=== PATIENT | female | born 1980 | race Caucasian/White ===

== ENCOUNTER 2017-04-12 09:17 | Inpatient (IN) | payer BC ==
[2017-04-12 10:28] VITALS: BMI 30.7
--- NOTE | 2017-04-12 14:11 | HP ---
CIWA Score - CIWA Score Nausea/Vomitin (N/VD) Muscle Tremors: 4-Moderate,w/Arms Extend Anxiety: 4-Mod. Anxious/Guarded Agitation: 3 Paroxysmal Sweats: 1-Minimal Palms Moist Orientation: 0-Oriented Tacttile Disturbances: 0-None Auditory Disturbances: 0-None Visual Disturbances: 1-Very Mild Sensitivity Headache: 1-Very Mild CIWA-Ar Total Score: 19 Admission ROS S - HPI Chief Complaint: DETOX TX FOR ALCOHOL DEPENDENCE Allergies/Adverse Reactions: Allergies Allergy/AdvReac Type Severity Reaction Status Date / Time Sulfa (Sulfonamide Allergy Severe Rash Verified 04/12/17 11:04 Antibiotics) History of Present Illness: 36 Y/O FEMALE WITH A HX ALCOHOL DEPENDENCE SEEKING DETOX TX. FIRST TIME HERE. Exam Limitations: No Limitations - Ebola screening Have you traveled outside of the country in the last 21 days: No Have you had contact with anyone from an Ebola affected area: No Have you been sick,other than usual withdrawal symptoms: No Do you have a fever: No - Review of Systems Constitutional: Chills, Loss of Appetite, Night Sweats, Changes in sleep, Other (WIEGHT GAIN) EENT: reports: Blurred Vision, Tearing, Nose Congestion, Dental Problems ( MISSING TEETH/CAVITIES.) Respiratory: reports: Shortness of Breath (ASTHMA), Wheezing Cardiac: reports: Chest Pain (WENT TO CARDIALOGISTS A MONTH AND A HALF AGO. NO CARDIAC INVOLVEMENT INDICATED BY PATIENT PER HER CARDIAC WORK UP. "MAYBE ANXIETY RELATED".), Lightheadedness, Palpitations, Chest Tightness (DUE TO PANIC ATTACKS) GI: reports: Diarrhea, Nausea, Poor Appetite, Poor Fluid Intake, Vomiting, Abdominal cramping : reports: No Symptoms Reported Musculoskeletal: reports: Back Pain, Joint Pain, Muscle Pain Integumentary: reports: Bruising (BRUISES EASILY.) Neuro: reports: Headache, Numbness, Tingling, Tremors, Unsteady Gait, Dizziness Endocrine: reports: No Symptoms Reported Hematology: reports: No Symptoms Reported Psychiatric: reports: Orientated x3, Anxious, Depressed Other Systems: Reviewed and Negative Patient History - Patient Medical History Hx Anemia: No Hx Asthma: Yes (MDI) Hx Chronic Obstructive Pulmonary Disease (COPD): No Hx Cardiac Disorders: No Hx Hypertension: No Hx Hypercholesterolemia: No HX Cerebrovascular Accident: No Hx Seizures: No Hx Diabetes: No Hx Gastrointestinal Disorders: Yes (acid reflux) Hx Genitourinary Disorders: No Hx Sexually Transmitted Disorders: Yes (chlamydia at age 14) Hx Renal Disease (ESRD): No Hx Thyroid Disease: No Hx Human Immunodeficiency Virus (HIV): No (NEGATIVE HX) Hx Hepatitis C: No Hx Depression: Yes (ON CELEXA,LAMICTAL,WELBUTRIN,GABAPENTIN) Hx Suicide Attempt: Yes (CUTTING AT 13;DENIES CURRENT S/H IDEATION) Hx Schizophrenia: No - Patient Surgical History Past Surgical History: Yes Hx Neurologic Surgery: No Hx Cataract Extraction: No Hx Cardiac Surgery: No Hx Lung Surgery: No Hx Breast Surgery: No Hx Breast Biopsy: No Hx Abdominal Surgery: No Hx Appendectomy: No Hx Cholecystectomy: No Hx Genitourinary Surgery: No Hx Section: No Hx Orthopedic Surgery: Yes (fx, right knee) Hx Hysterectomy: No Anesthesia Reaction: No - PPD History Previous Implant?: Yes Documented Results: Negative w/o proof Implanted On Prior R Admission?: No PPD to be Administered?: Yes - Reproductive History Patient is a Female of Child Bearing Age (11 -55 yrs old): Yes Last Menstrual Period: 04/10/17 Patient : No - Smoking Cessation Smoking history: Current every day smoker Have you smoked in the past 12 months: Yes Aproximately how many cigarettes per day: 30 Hx Chewing Tobacco Use: No Initiated information on smoking cessation: Yes 'Breaking Loose' booklet given: 04/12/17 - Substance & Tx. History Hx Alcohol Use: Yes (BEER/WHISKY/WINE) Hx Substance Use: No Substance Use Type: Alcohol Hx Substance Use Treatment: Yes (LAST TX AT [facility] LAST 24 HRS FOR DETOX) - Substances Abused Alcohol-beer/whisky/wine Route: Oral Frequency: Daily Amount used: 15-18 (12 oz.)/1 pt. Age of first use: 11 Date of Last Use: 04/11/17 Family Disease History - Family Disease History Family Disease History: Diabetes: Grandparent (GF-) Admission Physical Exam BHS - Vital Signs Vital Signs: Vital Signs - 24 hr 04/12/17 10:24 Temperature 97.3 F L Pulse Rate 84 Respiratory 18 Rate Blood Pressure 130/83 - Physical General Appearance: Yes: Moderate Distress, Obese, Irritable, Anxious HEENTM: Yes: EOMI, Normocephalic, AMBER, Pharynx Normal, Photophobia Respiratory: Yes: Chest Non-Tender, Lungs Clear, Normal Breath Sounds, No Respiratory Distress Neck: Yes: No masses,lesions,Nodules, Supple, Trachea in good position Breast: Yes: Breast Exam Deferred Cardiology: Yes: Regular Rhythm, Regular Rate, S1, S2 Abdominal: Yes: Normal Bowel Sounds, Non Tender, Soft Genitourinary: Yes: Other (N/C) Back: Yes: Within Normal Limits Musculoskeletal: Yes: full range of Motion, Gait Steady Extremities: Yes: Normal Range of Motion, Non-Tender, Tremors Neurological: Yes: winch stripper II-XII NML intact, Fully Oriented, Alert, Motor Strength 5/5 Integumentary: Yes: Dry, Warm Lymphatic: Yes: Within Normal Limits - Diagnostic (1) Alcohol dependence with uncomplicated withdrawal Current Visit: Yes Status: Acute (2) Asthma Current Visit: Yes Status: Chronic Qualifiers: Asthma severity: mild intermittent Asthma complication type: uncomplicated Qualified Code(s): J45.20 - Mild intermittent asthma, uncomplicated (3) GERD (gastroesophageal reflux disease) Current Visit: Yes Status: Chronic Qualifiers: Esophagitis presence: without esophagitis Qualified Code(s): K21.9 - Gastro-esophageal reflux disease without esophagitis Comment: NO CURRENT MED (4) Depression with anxiety Current Visit: Yes Status: Chronic Cleared for Admission S - Detox or Rehab [facility] Level of Care: Medically Managed Detox Regimen/Protocol: Librium [facility] Breath Alcohol Content Breath Alcohol Content: 0 Urine Pregancy Test - Result Urine Test Results: Negative- NO Line Present Urine Drug Screen - Results Drug Screen Negative: No Urine Drug Screen Results: BZO-Benzodiazepines
[2017-04-12] MEDS ORDERED: LOPERAMIDE HCL 2 MG CAPSULE PO PRN (14:34)
[2017-04-12] MEDS ORDERED: chlordiazePOXIDE HCL 25 MG CAPSULE PO PRN (14:34)
[2017-04-12] MEDS ORDERED: MENTHOL/PHENOL 1 EACH UD MM PRN (14:34)
[2017-04-12] MEDS ORDERED: hydrOXYzine PAMOATE 25 MG CAPSULE (FP) PO PRN (14:34)
[2017-04-12] MEDS ORDERED: MAGNESIUM CITRATE 300 ML BOTTLE PO PRN (14:34)
[2017-04-12] MEDS ORDERED: ACETAMINOPHEN 325 MG TABLET (FP) PO PRN (14:34)
[2017-04-12] MEDS ORDERED: P-EPHED 60MG/TRIPROLIDI 2.5MG TABLET PO PRN (14:34)
[2017-04-12] MEDS ORDERED: MAGNESIUM HYDROX 2400MG/30ML ORAL SUSPENSION 30 ML CUP PO PRN (14:34)
[2017-04-12] MEDS ORDERED: MAG HYDROX/AL HYDROX/SIMETH 30 ML UNIT-DOSE CUP PO PRN (14:34)
[2017-04-12] MEDS ORDERED: IBUPROFEN 400 MG TABLET (FP) PO PRN (14:34)
[2017-04-12] MEDS ORDERED: chlordiazePOXIDE HCL 25 MG CAPSULE PO ONE (15:15)
[2017-04-12] MEDS: chlordiazePOXIDE HCL 25 MG CAPSULE PO SCH ×2 (16:24→22:25)
[2017-04-12] MEDS: NICOTINE 21 MG/24 HOURS TOPICAL PATCH TD SCH (17:50)
[2017-04-12 18:22] LABS: URINE APPEARANCE SLCLOUDY; URINE BILIRUBIN NEGATIVE (NEGATIVE); URINE BLOOD 2+ (NEGATIVE); URINE COLOR AMBER; URINE GLUCOSE (UA) NEGATIVE (NEGATIVE); URINE KETONE TRACE (NEGATIVE); URINE LEUK ESTERASE NEGATIVE (NEGATIVE); URINE NITRITE NEGATIVE (NEGATIVE); URINE PROTEIN NEGATIVE (NEGATIVE); URINE UROBILINOGEN NEGATIVE mg/dL (0.2-1.0)
[2017-04-12 18:36] LABS: URINE MUCUS RARE; URINE RBC 17 /hpf (0-3); URINE WBC 2 /hpf (3-5)
[2017-04-12] MEDS: THIAMINE HCL 100 MG TABLET (FP) PO SCH (22:25)
[2017-04-12] MEDS: diphenhydrAMINE HCL 50 MG CAPSULE PO PRN (22:26)
[2017-04-12] MEDS: guaiFENesin/D-METHORPHAN HB 10 ML UNIT-DOSE CUPS PO PRN (22:26)
[2017-04-13] MEDS: chlordiazePOXIDE HCL 25 MG CAPSULE PO SCH ×4 (06:12→22:34)
[2017-04-13] MEDS: NICOTINE POLACRILEX 4 MG GUM BC PRN ×3 (06:15→18:11)
[2017-04-13 10:41] LABS: MCH 31.9 pg (25.7-33.7); MCHC 33.5 g/dl (32.0-36.0); MEAN CELL VOLUME 95.1 fl (80-96); MEAN PLT VOLUME 8.9 fl (7.5-11.1); PLATELET COUNT 271 K/MM3 (134-434); WHITE BLOOD COUNT 7.5 K/mm3 (4.0-10.0)
[2017-04-13 10:50] LABS: ANION GAP 9 (8-16); CALCIUM 9.1 mg/dL (8.5-10.1); CO2 26 mmol/L (21-32); GLUCOSE,RANDOM 105 mg/dL (74-106); SGOT/AST 33 U/L (15-37); SGPT/ALT 32 U/L (12-78)
[2017-04-13 10:52] LABS: ALK PHOS 92 U/L (45-117); BILIRUBIN,TOTAL 0.9 mg/dL (0.2-1.0); CREATININE 0.7 mg/dL (0.55-1.02); TOT PROT 7.3 g/dl (6.4-8.2)
[2017-04-13] MEDS: PRENATAL VITAMINS W/ FOLIC ACID TABLET (FP) PO SCH (10:58)
[2017-04-13] MEDS: NICOTINE 21 MG/24 HOURS TOPICAL PATCH TD SCH (11:01)
--- NOTE | 2017-04-13 11:27 | CONSULT ---
[facility] Psychiatric Consult - Data Date of interview: 04/13/17 Admission source: [facility] Identifying data: First admission to [facility] for this 36 y/o female seeking detox treatment on for alcohol dependence. Substance Abuse History: Discussed with the patient.Ms Velarde confirms this report. Smoking Cessation. Smoking history: Current every day smoker. Have you smoked in the past 12 months: Yes. Aproximately how many cigarettes per day : 30. Hx Chewing Tobacco Use: No. Initiated information on smoking cessation: Yes. 'Breaking Loose' booklet given: 04/12/17. - Substance & Tx. History. Hx Alcohol Use: Yes (BEER/WHISKY/WINE). Hx Substance Use: No. Substance Use Type : Alcohol. Hx Substance Use Treatment: Yes (LAST TX AT [facility] LAST 24 HRS FOR DETOX). - Substances Abused. Alcohol-beer/whisky/ wine. Route: Oral. Frequency: Daily. Amount used: 15-18 (12 oz.)/1 pt. Age of first use: 11. Date of Last Use: 04/11/17 Medical History: Bronchial asthma,GERD and a history of treatment for chlamydia.Noted additional report of orthosurgery for torn meniscus (left knee) and reconstructive surgery for fracture of right knee. Psychiatric History: Patient admits to a psychiatric hospitalization in [place] (age 13).Diagnosed with Bipolar Disorder and BASSEM.Ms Velarde indicates that she sees a private psychiatrist in [facility] for medication management.Maintained on gabapentin 600 mg/day + lamictal 200 mg/day + wellbutrin XL 300 mg/day + celexa 40 mg/day.Patient endorses a history of adequate adherence to her medications (confirmed by review of pharmacy claims of 02/06/17 + 02/26/17).Noted remote history of suicide attempt via wrist-cutting (age 13). Physical/Sexual Abuse/Trauma History: Patient denies. Additional Comment: Urine Drug Screen Results: BZO-Benzodiazepines.Noted. Mental Status Exam - Mental Status Exam Alert and Oriented to: Time, Place, Person Cognitive Function: Good Patient Appearance: Well Groomed (overweight) Mood: Anxious, Apprehensive, Hopeful Affect: Mood Congruent Patient Behavior: Fatigued, Appropriate, Cooperative Speech Pattern: Clear Voice Loudness: Normal Thought Process: Goal Oriented Thought Disorder: Not Present Hallucinations: Denies Suicidal Ideation: Denies Homicidal Ideation: Denies Insight/Judgement: Poor Sleep: Fair Appetite: Good Muscle strength/Tone: Normal Gait/Station: Normal Psychiatric Findings - Problem List ([place] 1, 2,3) (1) Alcohol dependence with uncomplicated withdrawal Status: Chronic (2) Alcohol-induced mood disorder Status: Chronic (3) BASSEM (generalized anxiety disorder) Status: Chronic (4) Bipolar disorder Status: Chronic (5) Asthma Status: Chronic Qualifiers: Asthma severity: mild intermittent Asthma complication type: uncomplicated Qualified Code(s): J45.20 - Mild intermittent asthma, uncomplicated (6) GERD (gastroesophageal reflux disease) Status: Chronic Qualifiers: Esophagitis presence: without esophagitis Qualified Code(s): K21.9 - Gastro-esophageal reflux disease without esophagitis Comment: NO CURRENT MED - Initial Treatment Plan Initial Treatment Plan: Psychoeducation.Medications are verified via survey of recent pharmacy claims.Bottles seen.NO scripts needed at discharge (noted refills for 90 days already available from OPD provider).Medications : gabapentin 200 mg po tid + celexa 40 mg po daily + lamictal 200 mg po daily + wellbutrin XL 300 mg po daily.Side effects/benefits of each drug are discussed with patient,including the risk of exfoliative dermatitis,seizures,suicidal ideation/sexual dysfunction and oversedation.Good tolerability is reported.Patient is eager to resume her medications.Observation.
[2017-04-13] MEDS: GABAPENTIN 100 MG CAPSULE (FP) PO SCH ×2 (13:47→22:34)
[2017-04-13] MEDS: CITALOPRAM HYDROBROMIDE 20 MG TABLET (FP) PO SCH (13:47)
--- NOTE | 2017-04-13 16:05 | PN ---
S CIWA - CIWA Score Nausea/Vomitin Muscle Tremors: 3 Anxiety: 2 Agitation: 2 Paroxysmal Sweats: 1-Minimal Palms Moist Orientation: 0-Oriented Tacttile Disturbances: 1-Very Mild Itch/Numbness Auditory Disturbances: 1-Very Mild Visual Disturbances: 1-Very Mild Sensitivity Headache: 2-Mild CIWA-Ar Total Score: 16 S Progress Note (SOAP) Subjective: ALERT,IRRITABLE,ANXIOUS,INTERRUPTED SLEEP,PAIN IN THE BODY Objective: 04/13/17 16:03 Vital Signs Temperature 98.1 F 04/13/17 15:01 Pulse Rate 81 04/13/17 15:01 Respiratory Rate 18 04/13/17 15:01 Blood Pressure 125/76 04/13/17 15:01 O2 Sat by Pulse Oximetry (%) 04/13/17 16:03 EKG NSR,NORMAL ECG Laboratory Last Values WBC 7.5 K/mm3 (4.0-10.0) 04/13/17 06:10 RBC 4.23 M/mm3 (3.60-5.2) 04/13/17 06:10 Hgb 13.5 GM/dL (10.7-15.3) 04/13/17 06:10 Hct 40.3 % (32.4-45.2) 04/13/17 06:10 MCV 95.1 fl (80-96) 04/13/17 06:10 MCH 31.9 pg (25.7-33.7) 04/13/17 06:10 MCHC 33.5 g/dl (32.0-36.0) 04/13/17 06:10 RDW 14.0 % (11.6-15.6) 04/13/17 06:10 Plt Count 271 K/MM3 (134-434) 04/13/17 06:10 MPV 8.9 fl (7.5-11.1) 04/13/17 06:10 Sodium 136 mmol/L (136-145) 04/13/17 06:10 Potassium 4.1 mmol/L (3.5-5.1) 04/13/17 06:10 Chloride 101 mmol/L (98-107) 04/13/17 06:10 Carbon Dioxide 26 mmol/L (21-32) 04/13/17 06:10 Anion Gap 9 (8-16) 04/13/17 06:10 BUN 8 mg/dL (7-18) 04/13/17 06:10 Creatinine 0.7 mg/dL (0.55-1.02) 04/13/17 06:10 Creat Clearance w eGFR > 60 (>60) 04/13/17 06:10 Random Glucose 105 mg/dL (74-106) 04/13/17 06:10 Calcium 9.1 mg/dL (8.5-10.1) 04/13/17 06:10 Total Bilirubin 0.9 mg/dL (0.2-1.0) 04/13/17 06:10 AST 33 U/L (15-37) 04/13/17 06:10 ALT 32 U/L (12-78) 04/13/17 06:10 Alkaline Phosphatase 92 U/L (45-117) 04/13/17 06:10 Total Protein 7.3 g/dl (6.4-8.2) 04/13/17 06:10 Albumin 4.0 g/dl (3.4-5.0) 04/13/17 06:10 Urine Color [place] 04/12/17 17:50 Urine Appearance Slcloudy 04/12/17 17:50 Urine pH 6.0 (5.0-8.0) 04/12/17 17:50 Ur Specific [place] 1.025 (1.005-1.025) 04/12/17 17:50 Urine Protein Negative (NEGATIVE) 04/12/17 17:50 Urine Glucose (UA) Negative (NEGATIVE) 04/12/17 17:50 Urine Ketones Trace (NEGATIVE) H 04/12/17 17:50 Urine Blood 2+ (NEGATIVE) H 04/12/17 17:50 Urine Nitrite Negative (NEGATIVE) 04/12/17 17:50 Urine Bilirubin Negative (NEGATIVE) 04/12/17 17:50 Urine Urobilinogen Negative mg/dL (0.2-1.0) 04/12/17 17:50 Ur Leukocyte Esterase Negative (NEGATIVE) 04/12/17 17:50 Urine RBC 17 /hpf (0-3) 04/12/17 17:50 Urine WBC 2 /hpf (3-5) 04/12/17 17:50 Ur Epithelial Cells Few /hpf (FEW) 04/12/17 17:50 Urine Mucus Rare 04/12/17 17:50 RPR Titer Nonreactive (NONREACTIVE) 04/13/17 06:10 Assessment: 04/13/17 16:04 WITHDRAWAL SYMPTOM Plan: CONTINUE DETOX
[2017-04-13] MEDS: THIAMINE HCL 100 MG TABLET (FP) PO SCH (22:33)
[2017-04-13] MEDS: diphenhydrAMINE HCL 50 MG CAPSULE PO PRN (22:34)
[2017-04-13] MEDS: lamoTRIgine 100 MG TABLET (FP) PO SCH (22:34)
[2017-04-13] MEDS: guaiFENesin/D-METHORPHAN HB 10 ML UNIT-DOSE CUPS PO PRN (22:40)
[2017-04-14] MEDS: chlordiazePOXIDE HCL 25 MG CAPSULE PO SCH ×2 (05:25→10:42)
[2017-04-14] MEDS: GABAPENTIN 100 MG CAPSULE (FP) PO SCH ×3 (05:25→22:30)
[2017-04-14] MEDS: CITALOPRAM HYDROBROMIDE 20 MG TABLET (FP) PO SCH (10:41)
[2017-04-14] MEDS: lamoTRIgine 100 MG TABLET (FP) PO SCH ×2 (10:41→22:30)
[2017-04-14] MEDS: PRENATAL VITAMINS W/ FOLIC ACID TABLET (FP) PO SCH (10:42)
[2017-04-14] MEDS: NICOTINE POLACRILEX 4 MG GUM BC PRN (10:43)
[2017-04-14] MEDS: NICOTINE 21 MG/24 HOURS TOPICAL PATCH TD SCH (10:46)
--- NOTE | 2017-04-14 15:30 | PN ---
S CIWA - CIWA Score Nausea/Vomitin Muscle Tremors: 3 Anxiety: 2 Agitation: 2 Paroxysmal Sweats: 1-Minimal Palms Moist Orientation: 0-Oriented Tacttile Disturbances: 1-Very Mild Itch/Numbness Auditory Disturbances: 1-Very Mild Visual Disturbances: 1-Very Mild Sensitivity Headache: 2-Mild CIWA-Ar Total Score: 16 S Progress Note (SOAP) Subjective: ALERT,IRRITABLE,ANXIOUS,INTERRUPTED SLEEP, Objective: 04/14/17 15:28 Vital Signs Temperature 98.1 F 04/14/17 14:12 Pulse Rate 77 04/14/17 14:12 Respiratory Rate 18 04/14/17 14:12 Blood Pressure 112/44 04/14/17 14:12 O2 Sat by Pulse Oximetry (%) Laboratory Last Values WBC 7.5 K/mm3 (4.0-10.0) 04/13/17 06:10 RBC 4.23 M/mm3 (3.60-5.2) 04/13/17 06:10 Hgb 13.5 GM/dL (10.7-15.3) 04/13/17 06:10 Hct 40.3 % (32.4-45.2) 04/13/17 06:10 MCV 95.1 fl (80-96) 04/13/17 06:10 MCH 31.9 pg (25.7-33.7) 04/13/17 06:10 MCHC 33.5 g/dl (32.0-36.0) 04/13/17 06:10 RDW 14.0 % (11.6-15.6) 04/13/17 06:10 Plt Count 271 K/MM3 (134-434) 04/13/17 06:10 MPV 8.9 fl (7.5-11.1) 04/13/17 06:10 Sodium 136 mmol/L (136-145) 04/13/17 06:10 Potassium 4.1 mmol/L (3.5-5.1) 04/13/17 06:10 Chloride 101 mmol/L (98-107) 04/13/17 06:10 Carbon Dioxide 26 mmol/L (21-32) 04/13/17 06:10 Anion Gap 9 (8-16) 04/13/17 06:10 BUN 8 mg/dL (7-18) 04/13/17 06:10 Creatinine 0.7 mg/dL (0.55-1.02) 04/13/17 06:10 Creat Clearance w eGFR > 60 (>60) 04/13/17 06:10 Random Glucose 105 mg/dL (74-106) 04/13/17 06:10 Calcium 9.1 mg/dL (8.5-10.1) 04/13/17 06:10 Total Bilirubin 0.9 mg/dL (0.2-1.0) 04/13/17 06:10 AST 33 U/L (15-37) 04/13/17 06:10 ALT 32 U/L (12-78) 04/13/17 06:10 Alkaline Phosphatase 92 U/L (45-117) 04/13/17 06:10 Total Protein 7.3 g/dl (6.4-8.2) 04/13/17 06:10 Albumin 4.0 g/dl (3.4-5.0) 04/13/17 06:10 Urine Color [place] 04/12/17 17:50 Urine Appearance Slcloudy 04/12/17 17:50 Urine pH 6.0 (5.0-8.0) 04/12/17 17:50 Ur Specific [place] 1.025 (1.005-1.025) 04/12/17 17:50 Urine Protein Negative (NEGATIVE) 04/12/17 17:50 Urine Glucose (UA) Negative (NEGATIVE) 04/12/17 17:50 Urine Ketones Trace (NEGATIVE) H 04/12/17 17:50 Urine Blood 2+ (NEGATIVE) H 04/12/17 17:50 Urine Nitrite Negative (NEGATIVE) 04/12/17 17:50 Urine Bilirubin Negative (NEGATIVE) 04/12/17 17:50 Urine Urobilinogen Negative mg/dL (0.2-1.0) 04/12/17 17:50 Ur Leukocyte Esterase Negative (NEGATIVE) 04/12/17 17:50 Urine RBC 17 /hpf (0-3) 04/12/17 17:50 Urine WBC 2 /hpf (3-5) 04/12/17 17:50 Ur Epithelial Cells Few /hpf (FEW) 04/12/17 17:50 Urine Mucus Rare 04/12/17 17:50 RPR Titer Nonreactive (NONREACTIVE) 04/13/17 06:10 Assessment: 04/14/17 15:29 WITHDRAWAL SYMPTOM Plan: CONTINUE DETOX
[2017-04-14] MEDS: chlordiazePOXIDE 5 MG CAPSULE PO SCH ×2 (17:42→22:30)
[2017-04-14] MEDS: THIAMINE HCL 100 MG TABLET (FP) PO SCH (22:30)
[2017-04-14] MEDS: diphenhydrAMINE HCL 50 MG CAPSULE PO PRN (22:32)
[2017-04-14] MEDS: guaiFENesin/D-METHORPHAN HB 10 ML UNIT-DOSE CUPS PO PRN (22:33)
--- NOTE | 2017-04-14 22:34 | EKG ---
Test Reason : Blood Pressure : / mmHG Vent. Rate : 079 BPM Atrial Rate : 079 BPM P-R Int : 162 ms QRS Dur : 086 ms QT Int : 416 ms P-R-T Axes : 062 055 046 degrees QTc Int : 477 ms NORMAL SINUS RHYTHM NORMAL ECG NO PREVIOUS ECGS AVAILABLE Confirmed by ELEUTERIO STACY MD ([id number]) on 04/14/2017 10:34:43 PM Referred By: Yvonne Wilder Confirmed By:ELEUTERIO STACY MD
[2017-04-15] MEDS: chlordiazePOXIDE 5 MG CAPSULE PO SCH (05:46)
[2017-04-15] MEDS: GABAPENTIN 100 MG CAPSULE (FP) PO SCH (05:47)
--- NOTE | 2017-04-15 09:50 | DS ---
[facility] Detox Discharge Summary Admission Date: 04/12/17 Discharge Date: 04/15/17 - History Present History: Alcohol Dependence - Physical Exam Results Vital Signs: Vital Signs Temperature 97.7 F 04/15/17 06:37 Pulse Rate 67 04/15/17 06:37 Respiratory Rate 18 04/15/17 06:37 Blood Pressure 107/60 04/15/17 06:37 O2 Sat by Pulse Oximetry (%) - Treatment Hospital Course: Detox Protocol Followed, Detoxed Safely, Responded well, Discharged Condition Good, Rehab Referral Accepted - Medication Discharge Medications: Ambulatory Orders Bupropion HCl [Wellbutrin Xl -] 300 mg PO DAILY 04/12/17 Citalopram Hydrobromide [Celexa -] 40 mg PO DAILY 04/12/17 Gabapentin [Neurontin -] 200 mg PO AM 04/12/17 Gabapentin [Neurontin -] 400 mg PO HS 04/12/17 Lamotrigine [Lamictal -] 200 mg PO DAILY 04/12/17 - Diagnosis (1) Alcohol dependence with uncomplicated withdrawal Current Visit: Yes Status: Chronic (2) Alcohol-induced mood disorder Current Visit: Yes Status: Chronic (3) Asthma Current Visit: Yes Status: Chronic Qualifiers: Asthma severity: mild intermittent Asthma complication type: uncomplicated Qualified Code(s): J45.20 - Mild intermittent asthma, uncomplicated (4) Bipolar disorder Current Visit: Yes Status: Chronic (5) Depression with anxiety Current Visit: Yes Status: Chronic (6) BASSEM (generalized anxiety disorder) Current Visit: Yes Status: Chronic (7) GERD (gastroesophageal reflux disease) Current Visit: Yes Status: Chronic Qualifiers: Esophagitis presence: without esophagitis Qualified Code(s): K21.9 - Gastro-esophageal reflux disease without esophagitis - AMA Did Patient Leave Against Medical Advice: No (pt going home)
[2017-04-15 10:19] VITALS: BP 139/88; PULSE 83; TEMP 98.1
[2017-04-15] MEDS ORDERED: chlordiazePOXIDE HCL 10 MG CAPSULE PO SCH (17:00)
== END 2017-04-15 09:05 | disposition home or self-care (01) | DRG 897 ==
LOC: YASAS 09:17 → Y6N 13:02
PROVIDERS: ADMIT Internal Medicine Addiction Medicine; ATTEND Internal Medicine Addiction Medicine
PROC: HZ2ZZZZ Detoxification Services for Substance Abuse Treatment (ICD-10-PCS; principal; 2017-04-12)
DX: F10.230 Alcohol dependence with withdrawal, uncomplicated (principal); F10.24 Alcohol dependence with alcohol-induced mood disorder; F17.210 Nicotine dependence, cigarettes, uncomplicated; F31.9 Bipolar disorder, unspecified; F41.8 Other specified anxiety disorders; F41.1 Generalized anxiety disorder; E66.9 Obesity, unspecified; Z68.30 Body mass index [BMI] 30.0-30.9, adult; K21.9 Gastro-esophageal reflux disease without esophagitis; J45.20 Mild intermittent asthma, uncomplicated; Z87.42 Personal history of other diseases of the female genital tract; Z88.2 Allergy status to sulfonamides; Z91.5 Personal history of self-harm
CPT/HCPCS: 36415; 80053; 81003; 81015; 85027; 86593; 93005; 93010